=== PATIENT | female | born 1950 | race Caucasian/White ===

== ENCOUNTER 2016-10-24 19:09 | Emergency (ER) | payer BC ==
[~2016-10-24 19:09] MED LIST: ALTA5 PO; CALTRA600D PO; GLUCOPHAGE1000 MG PO; GLUCPH PO; HYDROCHLOROT25 MG PO; MULTIPLE VIT PO; OTC STOOL SOFTENER PO; RESTASIS OPH; [UNRECOGNIZED DRUG - OTHER] PO
[2016-10-24 22:14] LABS: BASOPHILS 0.4 %; BASOPHILS ABSOLUTE 0.05 10/3/uL (0.0-0.16); EOSINOPHILS 0.8 %; EOSINOPHILS ABSOLUTE 0.09 10/3/uL (0.0-0.53); ER CBC TAT 0 Hrs 08 Mins; HEMATOCRIT 42.8 % (36.0-48.0); HEMOGLOBIN 15.3 g/dL (12.0-16.0); IMMATURE GRANULOCYTES 0.5 %; IMMATURE GRANULOCYTES ABSOLUTE 0.06 10/3/uL (0.0-0.11); LYMPHOCYTES 19.3 %; LYMPHOCYTES ABSOLUTE 2.25 10/3/uL (0.67-4.30); MEAN CORPUS HGB CONC 35.7 g/dL (32.0-36.0); MEAN CORPUSCULAR HEMOGLOB 31.7 pg (26.0-34.0); MEAN CORPUSCULAR VOLUME 88.6 fL (80-100); MEAN PLATELET VOLUME 10.1 fL (9.2-13.0); MONOCYTES 7.3 %; MONOCYTES ABSOLUTE 0.85 10/3/uL (0.21-1.20); NEUTROPHILS 71.7 %; NEUTROPHILS ABSOLUTE 8.37 10/3/uL (2.02-8.40); PLATELET COUNT 235 10/3/uL (150-400); RBC DISTRIBUTION WIDTH 14.5 % (12.0-16.0); RED CELL COUNT 4.83 10/6/uL (4.0-5.6); WHITE BLOOD CELLS 11.7 10/3/uL (4.5-10.5)
[2016-10-24 22:15] LABS: MANUAL DIFF NO %
[2016-10-24 22:18] LABS: INFLUENZA A SCREEN NEGATIVE (NEGATIVE); INFLUENZA B SCREEN NEGATIVE (NEGATIVE)
[2016-10-24 22:28] LABS: A/G RATIO 0.8 (0.7-1.9); ALBUMIN 3.5 G/DL (3.5-5.0); ALKALINE PHOSPHATASE 71 U/L (45-117); CALCIUM, SERUM 9.4 MG/DL (8.5-10.4); CHLORIDE, SERUM 100 MMOL/L (96-112); CO2 (CARBON DIOXIDE) 23 MMOL/L (24-34); POTASSIUM, SERUM 4.1 MMOL/L (3.5-5.3); SGOT(AST) 24 U/L (5-40); SGPT(ALT) 26 U/L (5-65); SODIUM, SERUM 137 MMOL/L (135-148); TOTAL BILIRUBIN 0.6 MG/DL (0-1.2); TOTAL PROTEIN 8.1 G/DL (6.0-8.5)
[2016-10-24 22:29] LABS: BUN (BLOOD UREA NITROGEN) 32 MG/DL (6-23); CREATININE 1.67 MG/DL (0.55-1.02); GFR AFRICAN AMERICAN 37 ML/MIN (>=60); GFR NON AFRICAN AMERICAN 32 ML/MIN (>=60); GLOBULIN 4.6 G/DL (2.5-4.1); GLUCOSE, SERUM 218 MG/DL (60-99)
[2016-10-24 22:30] LABS: ASCORBIC ACID (UR NOT ORDER) NEG (NEG); BILIRUBIN, URINE NEGATIVE (NEG); ER URINALYSIS TAT 0 Hrs 11 Mins; KETONE, URINE TRACE MG/DL (NEG); LEUKOCYTE ESTERASE(NOT OR TRACE (NEG); NITRITE (URINE) NEG (NEG); WBC (NOT ORDERED) (RFLEX) 22 (0-5)
[2016-10-25 00:12] LABS: TROPONIN I <0.02 NG/ML (<0.05)
[2016-10-25] MEDS ORDERED: LOP25 PO (01:44)
[2016-10-25] MEDS ORDERED: LEVAQUIN750 MG PO (01:45)
[2016-10-25] MEDS ORDERED: STRATTERA18 MG PO (01:45)
[2016-10-25] MEDS ORDERED: ASAB PO (01:46)
[2016-10-25] MEDS ORDERED: CRESTOR20 MG PO (01:46)
[2016-10-25] MEDS ORDERED: EFFIENT10 PO (01:46)
[2016-10-25] MEDS ORDERED: PRIN10 PO (01:47)
[2016-10-25] MEDS ORDERED: FORTAMET500 MG PO (01:48)
[2016-10-25 02:59] LABS: BE (BASE EXCESS) -3.4 MEQ/L (0 +/- 2.5); CARBOXYHEMOGLOBIN 1.2 % (0-3); HCO3 (ACTUAL BICARBONATE) 21.1 MEQ/L (23-27); HEMOBLOGIN CONTENT 12.6 G/DL (12-16); INSTRUMENT SERIAL # 8087; METHEMOGLOBIN 0.4 % (0-3); O2 CONTENT 16.5 VOL% (18-24); PCO2 (CO2 TENSION) 36 MMHG (35-45); PO2 (O2 TENSION) 73 MMHG (79-93); SAMPLE Arterial; pH 7.38 (7.37-7.43)
[2017-03-03] MEDS ORDERED: LOP25 PO (16:35)
[2017-03-03] MEDS ORDERED: GLUCOPHAGE1000 MG PO (16:39)
[2017-03-03] MEDS ORDERED: PRIN10 PO (16:40)
[2017-03-03] MEDS ORDERED: PLAVIX PO (16:40)
[2017-03-03] MEDS ORDERED: MACROBID PO (16:41)
[2017-03-03] MEDS ORDERED: CRESTOR20 MG PO (16:41)
[2017-03-03] MEDS ORDERED: HALF81 PO (16:42)
[2017-03-03] MEDS ORDERED: NITROSTAT0.4 MG SL (16:43)
[2017-03-28] MEDS ORDERED: BYETTA10 SC (06:54)
[2017-03-28] MEDS ORDERED: EFFIENT10 PO (15:02)
[2017-03-28] MEDS ORDERED: LUVOX50 PO (15:03)
[2017-03-28] MEDS ORDERED: MICROZIDE PO (15:04)
[2017-03-28] MEDS ORDERED: PROTONIX PO (15:13)
[2017-03-28] MEDS ORDERED: VIB50 PO (15:15)
== END 2016-10-25 04:21 | disposition home or self-care (01) ==
LOC: ER 19:09
PROVIDERS: Nurse Practitioner Acute Care; Specialist
DX: E86.0 Dehydration (principal); N17.9 Acute kidney failure, unspecified; R19.7 Diarrhea, unspecified; I10 Essential (primary) hypertension; K21.9 Gastro-esophageal reflux disease without esophagitis; E11.9 Type 2 diabetes mellitus without complications; Z95.5 Presence of coronary angioplasty implant and graft; Z90.710 Acquired absence of both cervix and uterus; Z88.2 Allergy status to sulfonamides; Z88.8 Allergy status to other drugs, medicaments and biological substances; Z79.82 Long term (current) use of aspirin; Z79.84 Long term (current) use of oral hypoglycemic drugs; Z79.899 Other long term (current) drug therapy
CPT/HCPCS: 36600; 71020; 80053; 81001; 82805; 83605; 84145; 84484; 85025; 87040; 87086; 87804; 93005; 94640; 96374; 99285; A9270-GY; J2405